=== PATIENT | male | born 1955 | race Hispanic/Latino ===

== ENCOUNTER → 2019-03-27 | Day surgery (SDC) | payer OTHER ==
--- NOTE | 2019-03-25 17:21 | Diagnostic Imaging Report ---
EXAMINATION: CHEST 2 VIEWS INDICATION: Pre-operative COMPARISON: None FINDINGS: LINES/TUBES:None LUNGS:The lungs are well-inflated. No focal consolidation or pulmonary edema. PLEURA:No pleural effusion or pneumothorax. MEDIASTINUM:The cardiomediastinal silhouette appears normal in size and shape. BONES/SOFT TISSUES:No acute osseous injury. ABDOMEN:No free air under the diaphragm. IMPRESSION: No focal pneumonia or pulmonary edema. Signed by: Gita Santos MD on 03/25/2019 5:18 PM
[2019-03-25 17:24] LABS: BASOPHILS % 0.4 % (0.0-1.0); EOSINOPHILS # (AUTO) 0.1 (0.0-0.4); EOSINOPHILS % 1.1 % (0.0-6.0); HEMATOCRIT 41.4 % (38.2-49.6); HEMOGLOBIN 13.4 g/dL (14.0-18.0); LYMPHOCYTES # (AUTO) 1.6 (1.0-3.2); LYMPHOCYTES % 28.1 % (18.0-39.1); MEAN CORPUSCULAR HEMOGLOBIN 28.5 pg (28-32); MEAN CORPUSCULAR HGB CONC 32.4 g/dL (31-35); MEAN CORPUSCULAR VOLUME 88.1 fL (81-99); MONOCYTES # (AUTO) 0.4 (0.2-0.8); MONOCYTES % 7.2 % (4.4-11.3); NEUTROPHILS # (AUTO) 3.6 (2.1-6.9); PLATELET COUNT 265 x10e3/uL (140-360); RED CELL DISTRIBUTION WIDTH 13.7 % (11.7-14.4)
[2019-03-25 17:39] LABS: INR 0.9; PROTHROMBIN TIME 12.6 seconds (11.9-14.5)
[2019-03-25 17:40] LABS: PARTIAL THROMBOPLASTIN TIME 37.1 seconds (23.8-35.5)
[2019-03-25 17:47] LABS: ALANINE AMINOTRANSFERASE 29 IU/L (0-55); ALBUMIN/GLOBULIN RATIO 1.1 (0.8-2.0); ALKALINE PHOSPHATASE 85 IU/L (40-150); ANION GAP 13.8 mmol/L (8-16); BLOOD UREA NITROGEN 26 mg/dL (7-26); BUN/CREATININE RATIO 23 (6-25); CALCIUM 9.9 mg/dL (8.4-10.2); CARBON DIOXIDE 26 mmol/L (22-29); CHLORIDE 104 mmol/L (98-107); CREATININE, SERUM 1.13 mg/dL (0.72-1.25); EST GLOMERULAR FILTRATION RATE > 60 ML/MIN (60-); GLUCOSE 103 mg/dL (74-118); POTASSIUM 3.8 mmol/L (3.5-5.1); SODIUM 140 mmol/L (136-145)
[~2019-03-27] MED LIST: ACETAMINOPHEN 1000 MG/100 ML IV ONE; ACETAMINOPHEN/CODEINE 300MG - 30MG TAB ONE; ALBUTEROL SULFATE HFA 8GM INHALATION AEROSOL INH ONE; AMLODIPINE BESYL5 MG PO; ATORVASTATIN CA40 MG PO; BACITRACIN 50,000 UNIT VIAL ONE; BUPIVACAINE 0.25% 30ML SDV INJ ONE; CEFOXITIN 1GM/ D5W 50ML 50 ML IV ONE; CIPRO500 MG PO; DEXAMETHASONE SOD PHOS INJ 4 MG/ML VIAL ONE; FENTANYL CITRATE/PF 100MCG/2 ML INJ ONE; FLOMAX0.4 MG PO; HYDROCHLOROTHIA25 MG PO; KEFLEX500 MG PO; LIDOCAINE HCL 1% LOCAL INJ 20 ML VIAL ONE; LIDOCAINE HCL 2% LOCAL INJ 5 ML SDV VIAL INJ ONE; LOSARTAN POTASS25 MG PO; MIDAZOLAM HCL 2 MG/2 ML VIAL ONE; NAPROXEN250 MG PO; NEOMYCIN/POLYMYX/BACITR OINT 0.9 GM PKT ONE; ONDANSETRON HCL INJ 2MG/ML 2ML 2 MG/ML VIAL ONE; PIOGLITAZONE HC45 MG PO; PROPOFOL IV EMULSION 10 MG/ML 20 ML VIAL ONE; SEVOFLURANE INHAL SOLN 250 ML PEN BTL ONE; TYLENOL WITH C1 EACH PO
--- OUTSIDE RECORDS SUMMARY | 2019-03-27 07:12 | XMS REPORT ---
[facility] Address Unknown Phone Unavailable Care Team Providers Care Self [employer]er Name Role Phone TARAN QUINONES Unavailable Unavailable Problems This patient has no known problems. Allergies, Adverse Reactions, Alerts This patient has no known allergies or adverse reactions. Medications This patient has no known medications. Results Test Description Test Time Test Comments Text Results Atomic Results Result Comments CHEST 2 VIEWS 2019-03-25 17:17:00 [place] [address] Patient Name: CHET SPEARS MR #: [id number] : 1955 Age/Sex: 63/M Req #: [id number] Adm Physician: Ordered by: TARAN QUINONES MD Report #: [id number] Location: OR Room/Bed: Procedure: [id number] DX/CHEST 2 VIEWS Exam Date: Exam Time: REPORT STATUS: Signed EXAMINATION: CHEST 2 VIEWS INDICATION: Pre-operative COMPARISON: None FINDINGS: LINES/TUBES:None LUNGS:The lungs are well- inflated. No focal consolidation or pulmonary edema. PLEURA:No pleural effusion or pneumothorax. MEDIASTINUM:The cardiomediastinal silhouette appears normal in size and shape. BONES/SOFT TISSUES:No acute osseous injury. ABDOMEN:No free air under the diaphragm. IMPRESSION: No focal pneumonia or pulmonary edema. Signed by: Chan Santos MD on 03/25/2019 5:18 PM Dictated By: CHAN SANTOS MD 17 Transcribed By: TIA on 03/25/191717 COPY TO: TARAN QUINONES MD
--- NOTE | 2019-03-27 07:15 | NUR ---
SPIRITUAL CARE - Pre-Surgery Assessment: Pt in bed. Pt's friend at bedside. Pt reported supportive attention from family and friends. Intervention: I provided pastoral presence, hospitality, and sympathetic listening. I acquainted pt with availability of clinical team lead while hospitalized. Outcome: Pt expressed appreciation for visit. No need for follow up indicated at this time. FR[facility]el[facility] Spiritual Care Department O: [phone] Pager: [phone] ([phone] number calling from)
--- NOTE | 2019-03-27 13:13 | Operative Report ---
DATE OF PROCEDURE: 03/27/2019 SURGEON: Bernard Bear MD LOCATION: [facility]. PREOPERATIVE DIAGNOSIS: Right inguinal hernia and phimosis. POSTOPERATIVE DIAGNOSIS: Right inguinal hernia and phimosis. OPERATION PERFORMED: Right inguinal hernia repair and adult circumcision. ANESTHESIA: General. INDICATIONS: This patient is a 63-year-old male, who has been having a bothersome right-sided inguinal hernia. He also states his foreskin does not bother him a great deal during sex and is cracked. For further details, please refer to history and physical. The procedure was done in following fashion. PROCEDURE IN DETAIL: The patient was taken to the operating room, and dressed and draped with Hibiclens in the supine position in usual fashion. A right inguinal incision was made in the direction of the skin crease. Hemostasis was maintained with electrocautery. The skin edges were elevated using skin rakes and the subcutaneous fat and Roberto's fascia opened. I then exposed the external oblique aponeurosis and the external ring. An incision was made in the external oblique aponeurosis in the direction of the fibers. Hemostats were placed on each side to lift up, we then a hemostat was passed proximally and distally in order to open up the inguinal canal. Then, I opened up the external oblique aponeurosis and the external ring. A large fat containing direct hernial sac was encountered, I dissected the hernia sac off the spermatic cord and as this was accomplished, I was then able to pass a Tila drain around the spermatic cord. The spermatic cord was inspected to see if there was an indirect sac available and no indirect hernia sac was identified. I began to further dissect off the direct hernial sac as I could push it easily back up into the abdomen. In view of the position of the direct hernia sac, I thought an easiest way to fix this one would be with a double layered Prolene mesh system. Once the hernial sac was pushed back inside, I then inserted the inner portion of the hernial mesh system to keep hernia inside the abdomen and then I tacked down the outer mesh to the transversalis fascia and to the pubic tubercle in order to keep the direct hernial sac inside. Once this was accomplished, the pubic tubercle area was tacked down and the hernia mesh system had been tacked down to the transversalis fascia. I then returned to make sure the testicle was in the scrotum on the right side and the spermatic cord was in good position. I then closed the external oblique aponeurosis with a running 0 Vicryl. The hernial mesh system was tacked down with 0 Vicryl as well. I then closed the transversalis fascia with 3-0 chromic interrupted stitches and then the skin was closed with lashay. I then covered over this area with a lap and put some new towels on in order to expose the area of the penis. A sleeve circumcision was performed. The first thing I did was to retract into the prepuce and then I do passed a mosquito clamp beneath the frenulum. A frenulotomy was then performed by tying of proximal and distal 3-0 chromic on the frenulum and then dividing the frenulum with the Metzenbaum. The outer sleeve or proximal sleeve was then marked using a marking pen, then I made a circumferential incision with a scalpel. Once this was completed, I then retracted the foreskin again and the distal circumferential incision was then made. Care was taken to avoid removing too much prepuce. Once the sleeve was generated, I then put hemostats proximally and distally to 12 o'clock position and divided the sleeve in the midline. I then dissected off the sleeve with Metzenbaum dissection, taking care to avoid injury to the urethra. My next step was to use a hemostats and pickup on the bleeding vessels and they were cauterized with electrocautery set at 30 and cutting on zero. When hemostasis was seen to be good, the wound was irrigated with sterile water to again inspect for hemostasis. When there was hemostasis was good, I then closed the foreskin with interrupted 3-0 chromic in a four quadrant fashion. The base of the penis was then circumferentially anesthetized with 0.25% Marcaine without epinephrine. Blood loss was minimal. The patient tolerated the procedure well and left the operating room in good condition with a scrotal support dressing and dressing on the penis. The hernia was covered with triple antibiotic ointment, Adaptic, and 4x4s. The patient will go home on Keflex 500 mg p.o. four times a day for 7 days, and Tylenol No. 3 one p.o. q.6 hours p.r.n. pain #28, and he will have return appointment to see me again in two weeks. No sex for 6 weeks. Bernard Bear MD SRA/MODL /[id number]
[2019-03-27 13:40] VITALS: BP 128/75
== END | disposition home or self-care (01) ==
LOC: OR 06:50
PROVIDERS: ATTEND Urology
DX: K40.90 Unilateral inguinal hernia, without obstruction or gangrene, not specified as recurrent (principal); N47.1 Phimosis; N40.1 Benign prostatic hyperplasia with lower urinary tract symptoms; R39.12 Poor urinary stream; N39.0 Urinary tract infection, site not specified; I10 Essential (primary) hypertension; G47.33 Obstructive sleep apnea (adult) (pediatric); E11.9 Type 2 diabetes mellitus without complications; K64.4 Residual hemorrhoidal skin tags; E78.00 Pure hypercholesterolemia, unspecified; H90.0 Conductive hearing loss, bilateral; E66.9 Obesity, unspecified; Z01.810 Encounter for preprocedural cardiovascular examination; Z01.812 Encounter for preprocedural laboratory examination; Z01.818 Encounter for other preprocedural examination; Z79.84 Long term (current) use of oral hypoglycemic drugs; Z68.32 Body mass index [BMI] 32.0-32.9, adult; Z87.442 Personal history of urinary calculi
CPT/HCPCS: 36415 ×2; 49505; 54161; 71046; 80053; 82948; 85025; 85610; 85730; 93005; C1781; J0131; J1100; J2001 ×2; J2250; J2405; J2704; J3010